=== PATIENT | female | born 1990 | race Caucasian/White ===

== ENCOUNTER 2016-05-12 17:45 | Emergency (ER) | payer OTHER ==
[~2016-05-12] VITALS: Ht 160 cm; Wt 88.8 kg
[~2016-05-12 17:45] MED LIST: ATARAX,VISTARIL25 MG PO; BENADRYL25 MG PO; COGENTIN1 MG PO; KLONOPIN1 MG PO; PAXIL20 MG PO
[2016-05-12 18:10] LABS: HEMATOCRIT 36.8 % (36.0-46.0); MCH 28.4 PG (29.0-34.0); MCHC 34.2 G/DL (30.0-36.0); MCV 82.9 FL (83-99); MEAN PLAT.VOLUME 10.5 uM^3 (9.5-12.4); PLATELET COUNT 225 K/uL (156-360); RBC DIS.WIDTH-CV 12.8 % (11.8-14.6); RBC DIS.WIDTH-SD 38.1 % (39-53); RED BLOOD COUNT 4.44 M/uL (3.80-5.20); WHITE BLOOD COUNT 8.6 K/uL (4.1-10.2)
[2016-05-12 18:26] LABS: CHLORIDE 106 mEq/L (99-109); POTASSIUM 4.2 mEq/L (3.7-5.4); SODIUM 138 mEq/L (136-147)
[2016-05-12 18:28] LABS: GLUCOSE 77 mg/dL (70-99)
[2016-05-12 18:30] LABS: ANION GAP 7 MEQ/L (2-14)
[2016-05-12 18:32] LABS: GFR ESTIMATE (CALCULATED) > 59 mL/min/
[2016-05-12 18:33] LABS: UREA NITROGEN (BUN) 5 mg/dL (9-23)
[2016-05-12 19:32] LABS: TOTAL BILIRUBIN 0.3 mg/dL (0.0-1.0)
[2016-05-12 19:33] LABS: ALKALINE PHOSPHATASE 54 IU/L (3-129)
[2016-05-12 19:36] LABS: DIRECT BILIRUBIN 0.2 mg/dL (0.0-0.3)
[2016-05-12 19:37] LABS: LIPASE 10 U/L (1.0-51.0)
[2016-05-12 19:44] LABS: ADD MIUA? YES; BILIRUBIN NEGATIVE; BLOOD NEGATIVE; COLOR AMBER ((YELLOW)); GLUCOSE (STRIP) NEGATIVE; KETONES NEGATIVE; LEUKOCYTES NEGATIVE; NITRITE NEGATIVE; PROTEIN (STRIP) 30; SPECIFIC GRAVITY 1.029 (1.000-1.030)
[2016-05-12] MEDS ORDERED: KEPPRA500 MG PO (19:56)
[2016-05-12] MEDS ORDERED: FOLIC ACID1 MG PO (19:56)
[2016-05-12 19:57] LABS: BACTERIA NONE SEEN /HPF; EPITHELIAL CELLS RARE /HPF; MUCUS TRACE /LPF; RED BLOOD CELLS 0-5 /HPF (0-5); UCUL ADDED? NO; WHITE BLOOD CELLS 0-5 /HPF (0-5)
[2016-05-12] MEDS ORDERED: SYMBICORT60 INHALAT IH (19:58)
[2016-05-12] MEDS ORDERED: ZOFRAN4 MG PO (20:52)
[2016-05-12 21:10] VITALS: BP 107/64
== END 2016-05-12 21:17 | disposition home or self-care (01) ==
LOC: EME 17:45
DX: O21.0 Mild hyperemesis gravidarum (principal); R51 Headache; O99.332 Smoking (tobacco) complicating pregnancy, second trimester; Z3A.14 14 weeks gestation of pregnancy; F17.200 Nicotine dependence, unspecified, uncomplicated
CPT/HCPCS: 80048; 80076; 81003; 83690; 84702; 85027; 99281; 99284; J2405; J7030

== ENCOUNTER 2016-09-30 00:10 | Outpatient (CLI) | payer OTHER ==
[~2016-09-30] VITALS: Ht 160 cm; Wt 94.4 kg
[2016-09-30] VITALS (21 sets, daily range): BP systolic 104–179; BP diastolic 52–86
[~2016-09-30 00:10] MED LIST changes: +FOLIC ACID1 MG PO; +KEPPRA500 MG PO; +SYMBICORT60 INHALAT IH; +ZOFRAN4 MG PO
[2016-09-30 02:01] LABS: ADD MIUA? YES; BILIRUBIN NEGATIVE; BLOOD NEGATIVE; COLOR YELLOW ((YELLOW)); GLUCOSE (STRIP) NEGATIVE; KETONES NEGATIVE; LEUKOCYTES TRACE; NITRITE NEGATIVE; PROTEIN (STRIP) NEGATIVE; SPECIFIC GRAVITY 1.011 (1.000-1.030); UROBILINOGEN 0.2 MG/DL (0.2-1.0)
[2016-09-30 02:03] LABS: BACTERIA NONE SEEN /HPF; EPITHELIAL CELLS RARE /HPF; MUCUS NONE SEEN /LPF; RED BLOOD CELLS NONE SEEN /HPF (0-5); UCUL ADDED? NO; WHITE BLOOD CELLS 0-5 /HPF (0-5)
[2016-09-30] MEDS ORDERED: METHADONE H5 MG/5 ML PO (02:31)
[2016-09-30 04:29] LABS: EOSINOPHIL (%) 0.1 % (0-5); HEMATOCRIT 31.7 % (36.0-46.0); IMMATURE GRANULOCYTE (%) 0.8 % (0.0-0.7); IMMATURE GRANULOCYTE COUNT 0.1 K/uL; INSTRUMENT ABS NEUTROPHIL CT 9.4 K/uL; LYMPHOCYTE COUNT 1.8 K/uL (1.0-2.8); MCH 28.5 PG (29.0-34.0); MCHC 33.4 G/DL (30.0-36.0); MCV 85.2 FL (83-99); MONOCYTE (%) 3.8 % (3-12); MONOCYTE COUNT 0.5 K/uL (0-0.8); NEUTROPHIL (%) 79.7 % (45-76); NEUTROPHIL COUNT 9.4 K/uL (1.8-6.4); PLATELET COUNT 202 K/uL (156-360); RBC DIS.WIDTH-CV 13.2 % (11.8-14.6); RBC DIS.WIDTH-SD 40.8 % (39-53); RED BLOOD COUNT 3.72 M/uL (3.80-5.20); WHITE BLOOD COUNT 11.8 K/uL (4.1-10.2)
[2016-09-30 08:25] LABS: AMPHETAMINES QUANT VALUE 0 NG/ML; BARBITUATES QUANT VALUE 0 NG/ML; BENZODIAZEPINES QUANT VALUE 0 NG/ML; BENZODIAZEPINES, URINE SCREEN Negative (200 ng/mL); MARIJUANA QUANT VALUE 0 NG/ML; OPIATES QUANTITATIVE VALUE 0 NG/ML; PHENCYCLIDINE QUANT VALUE 0 NG/ML
[2016-09-30 12:05] LABS: ALKALINE PHOSPHATASE 130 IU/L (3-129); ANION GAP 10 MEQ/L (2-14); CHLORIDE 106 MEQ/L (99-109); GFR ESTIMATE (CALCULATED) > 59 mL/min/; GLUCOSE 130 mg/dL (70-99); POTASSIUM 4.4 MEQ/L (3.7-5.4); SAMPLE HEMOLYSIS CHECK 0; SAMPLE ICTERIC CHECK 0; SAMPLE LIPEMIA CHECK 0; SODIUM 138 MEQ/L (136-147); TOTAL BILIRUBIN 0.3 MG/DL (0.0-1.0); UREA NITROGEN (BUN) 5 mg/dL (9-23)
[2016-09-30 15:33] LABS: UR CREATININE CONCENTRATION 13.1 MG/DL
[2016-09-30 18:37] LABS: DRSB INTERNAL CONTROL PASS; PROBE CHECK PASS; SPECIMEN PROCESSING CONTROL PASS
[2016-10-01] VITALS (8 sets, daily range): BP systolic 101–123; BP diastolic 51–71
[2016-10-01 11:16] LABS: HBSG INDEX 0.23
[2016-10-01 11:17] LABS: HPCA INDEX 0.12
[2016-10-01 11:18] LABS: ANTI-HEPATITIS A VIRUS (IGM) Nonreactive; HAV INDEX 0.11
[2016-10-01 11:19] LABS: ANTI-HEPATITIS B CORE (IGM) Nonreactive; HBC IgM INDEX 0.06
[2016-10-01] MEDS ORDERED: KEPPRA750 MG PO (12:58)
== END 2016-10-01 14:05 | disposition home or self-care (01) ==
LOC: LDRP-OP → 2WEST 00:11 → LDRP-OP 12-14 20:03
PROVIDERS: Advanced Practice Midwife; Obstetrics & Gynecology
DX: O60.03 Preterm labor without delivery, third trimester (principal); Z3A.33 33 weeks gestation of pregnancy; O36.5930 Maternal care for other known or suspected poor fetal growth, third trimester, not applicable or unspecified; G40.909 Epilepsy, unspecified, not intractable, without status epilepticus; J45.909 Unspecified asthma, uncomplicated; Z87.891 Personal history of nicotine dependence
CPT/HCPCS: 59025; 76815; 80053; 80074; 80306 90; 81003; 82570; 84156; 85025; 87081; 87086; 87653; C1755; G0378; J0595; J0702; J2540; J3105; J7120

== ENCOUNTER 2016-10-03 09:50 | Inpatient (IN) | payer OTHER ==
[2016-10-03] VITALS (21 sets, daily range): BP systolic 109–172; BP diastolic 54–103
[~2016-10-03] VITALS: Ht 162.6 cm; Wt 92.9 kg
[~2016-10-03 09:50] MED LIST changes: +KEPPRA750 MG PO; +METHADONE H5 MG/5 ML PO
[2016-10-03] MEDS ORDERED: PROCARDIA10 MG PO (10:11)
[2016-10-03] MEDS ORDERED: IRON325 MG PO (10:12)
[2016-10-03 11:39] LABS: EOSINOPHIL (%) 0.4 % (0-5); EOSINOPHIL COUNT 0.1 K/uL (0-0.3); HEMATOCRIT 31.8 % (36.0-46.0); IMMATURE GRANULOCYTE (%) 1.2 % (0.0-0.7); IMMATURE GRANULOCYTE COUNT 0.1 K/uL; INSTRUMENT ABS NEUTROPHIL CT 8.1 K/uL; LYMPHOCYTE COUNT 2.7 K/uL (1.0-2.8); MCH 28.3 PG (29.0-34.0); MCV 85.7 FL (83-99); MEAN PLAT.VOLUME 9.8 uM^3 (9.5-12.4); MONOCYTE (%) 6.4 % (3-12); MONOCYTE COUNT 0.8 K/uL (0-0.8); NEUTROPHIL (%) 68.9 % (45-76); NEUTROPHIL COUNT 8.1 K/uL (1.8-6.4); PLATELET COUNT 243 K/uL (156-360); RBC DIS.WIDTH-CV 13.1 % (11.8-14.6); RBC DIS.WIDTH-SD 40.8 % (39-53); RED BLOOD COUNT 3.71 M/uL (3.80-5.20); WHITE BLOOD COUNT 11.7 K/uL (4.1-10.2)
[2016-10-03 12:00] LABS: AMPHETAMINE NEGATIVE (500 ng/mL); BARBITURATES NEGATIVE (200 ng/mL); BENZODIAZEPINES NEGATIVE (150 ng/mL); COCAINE NEGATIVE (150 ng/mL); INTERNAL CONTROLS VALID? YES; METHADONE PRESUMPTIVE POSITIVE (200 ng/mL); METHAMPHETAMINE NEGATIVE (500 ng/mL); OPIATES (MORPHINE) NEGATIVE (100 ng/mL); OXYCODONE NEGATIVE (100 ng/mL); PHENCYCLIDINE NEGATIVE (25 ng/mL); PROPOXYPHENE NEGATIVE (300 ng/mL); THC CANNABINOIDS NEGATIVE (50 ng/mL); TRICYCLIC ANTIDEPRESSANTS NEGATIVE (300 ng/mL)
[2016-10-04 07:06] LABS: EOSINOPHIL (%) 0.4 % (0-5); EOSINOPHIL COUNT 0.1 K/uL (0-0.3); HEMATOCRIT 31.3 % (36.0-46.0); IMMATURE GRANULOCYTE (%) 1.5 % (0.0-0.7); IMMATURE GRANULOCYTE COUNT 0.2 K/uL; INSTRUMENT ABS NEUTROPHIL CT 8.2 K/uL; LYMPHOCYTE COUNT 3.4 K/uL (1.0-2.8); MCH 28.7 PG (29.0-34.0); MCHC 33.2 G/DL (30.0-36.0); MCV 86.2 FL (83-99); MONOCYTE (%) 6.1 % (3-12); MONOCYTE COUNT 0.8 K/uL (0-0.8); NEUTROPHIL (%) 65.2 % (45-76); NEUTROPHIL COUNT 8.2 K/uL (1.8-6.4); PLATELET COUNT 263 K/uL (156-360); RBC DIS.WIDTH-CV 12.9 % (11.8-14.6); RBC DIS.WIDTH-SD 40.4 % (39-53); RED BLOOD COUNT 3.63 M/uL (3.80-5.20); WHITE BLOOD COUNT 12.6 K/uL (4.1-10.2)
[2016-10-04 07:19] VITALS: BP 120/71
[2016-10-04 14:54] VITALS: BP 104/70
[2016-10-04 22:43] VITALS: BP 116/58
[2016-10-05 07:06] VITALS: BP 114/63
[2016-10-05] MEDS ORDERED: IBUPROFEN800 MG PO (09:41)
[2016-10-05 15:10] VITALS: BP 125/61
== END 2016-10-05 17:45 | disposition home or self-care (01) | DRG 775 ==
LOC: LDRP-OP 09:50 → 2WEST 09:51 → LDRP-OP 12-14 14:45
PROVIDERS: Advanced Practice Midwife
PROC: 10E0XZZ Delivery of Products of Conception, External Approach (ICD-10-PCS; principal; 2016-10-03)
PROC: 3E0S3CZ (ICD-10-PCS; principal; 2016-10-03)
PROC: 00HU33Z Insertion of Infusion Device into Spinal Canal, Percutaneous Approach (ICD-10-PCS; principal; 2016-10-03)
DX: O60.14X0 Preterm labor third trimester with preterm delivery third trimester, not applicable or unspecified (principal); O99.354 Diseases of the nervous system complicating childbirth; Z37.0 Single live birth; O69.81X0 Labor and delivery complicated by cord around neck, without compression, not applicable or unspecified; G40.909 Epilepsy, unspecified, not intractable, without status epilepticus; K21.9 Gastro-esophageal reflux disease without esophagitis; O99.214 Obesity complicating childbirth; O99.62 Diseases of the digestive system complicating childbirth; J45.909 Unspecified asthma, uncomplicated; O99.52 Diseases of the respiratory system complicating childbirth; F31.9 Bipolar disorder, unspecified; O99.343 Other mental disorders complicating pregnancy, third trimester; F11.20 Opioid dependence, uncomplicated; O99.324 Drug use complicating childbirth; E66.9 Obesity, unspecified; Z68.36 Body mass index [BMI] 36.0-36.9, adult; O42.913 Preterm premature rupture of membranes, unspecified as to length of time between rupture and onset of labor, third trimester; O36.5930 Maternal care for other known or suspected poor fetal growth, third trimester, not applicable or unspecified; Z3A.33 33 weeks gestation of pregnancy; O41.1230 Chorioamnionitis, third trimester, not applicable or unspecified; Z37.9 Outcome of delivery, unspecified
CPT/HCPCS: 59025; 76815; 80053; 80074; 80306 90; 81003; 82570; 84156; 85025; 87070; 87075; 87081; 87086; 87205; 87653; 88307; C1755; G0378; J0595; J0702; J2540; J3010; J3105; J7120

== ENCOUNTER 2017-06-02 01:18 | Emergency (ER) | payer OTHER ==
[~2017-06-02] VITALS: Ht 160 cm; Wt 102.5 kg
[~2017-06-02 01:18] MED LIST changes: +IBUPROFEN800 MG PO; +IRON325 MG PO; +PROCARDIA10 MG PO
[2017-06-02] MEDS ORDERED: ULTRAM50 MG PO (02:04)
[2017-06-02] MEDS ORDERED: PEN-VEE K,VEET500 MG PO (02:04)
[2017-06-02] MEDS ORDERED: NAPROSYN500 MG PO (02:04)
[2017-06-02 02:53] VITALS: BP 145/93
== END 2017-06-02 02:54 | disposition home or self-care (01) ==
LOC: EME 01:18
DX: K08.89 Other specified disorders of teeth and supporting structures (principal); G40.909 Epilepsy, unspecified, not intractable, without status epilepticus
CPT/HCPCS: 99281; 99283